=== PATIENT | male | born 1960 ===

== ENCOUNTER 2016-10-14 10:40 | Emergency (ER) | payer BC ==
[2016-10-14 10:43] VITALS: BMI 31.1
[2016-10-14 11:09] LABS: BASO # 0.1 K/uL (0.0-0.2); BASO % 0.7 % (0.0-2.0); EOS # 0.1 K/uL (0.0-0.7); EOS % 0.7 % (0.0-4.0); HEMATOCRIT 33.1 % (35.0-51.0); LYMPH # 1.4 K/uL (1.0-4.3); LYMPH % 9.7 % (20.0-40.0); MEAN CELL VOLUME 83.9 fL (80.0-94.0); MEAN CORPUSCULAR HGB CONC 32.2 g/dL (33.0-37.0); MEAN PLATELET VOLUME 8.9 fL (7.2-11.7); MONO # 1.2 K/uL (0.0-0.8); PLATELET COUNT 183 K/uL (130-400); RED CELL DISTRIBUTION WIDTH 13.7 % (11.5-14.5); WHITE BLOOD COUNT 14.6 K/uL (4.8-10.8)
--- NOTE | 2016-10-14 11:13 | C.PDOC ---
History Of Present Illness 56 y/o male history of aortic valve replacement 3 weeks ago (Gen) presents to the ED with complains of pain around incision site at right chest which developed last night. Pain worsened this morning and is worse with breathing. Pt also reports cramping and numbness sensation to right arm and leg since last night. Denies fever, chills, SOB, or any other complaints. Time Seen by Provider: 10/14/16 11:10 Chief Complaint (Nursing): Chest Pain History Per: Patient History/Exam Limitations: no limitations Onset/Duration Of Symptoms: Hrs Current Symptoms Are (Timing): Still Present Severity: Moderate Quality: "Pain" Exacerbating Factors: Other (breathing) Alleviating Factors: None Recent travel outside of the [place]: No Past Medical History Reviewed: Historical Data, Nursing Documentation, Vital Signs Vital Signs: Last Vital Signs Temp 98.6 F 10/14/16 19:42 Pulse 48 L 10/14/16 19:42 Resp 10 L 10/14/16 19:42 BP 100/43 L 10/14/16 19:42 Pulse Ox 100 10/14/16 19:42 - Medical History PMH: HTN, Hypercholesterolemia Surgical History: Endoscopy Family History: States: Unknown Family Hx - Social History Hx Alcohol Use: Yes Hx Substance Use: No - Immunization History Hx Tetanus Toxoid Vaccination: Yes Hx Influenza Vaccination: Yes Hx Pneumococcal Vaccination: Yes Review Of Systems Except As Marked, All Systems Reviewed And Found Negative. Constitutional: Negative for: Fever, Chills Respiratory: Negative for: Shortness of Breath Musculoskeletal: Positive for: Other (pain to insicion site at right chest; cramping and numbness to right arm and leg) Neurological: Positive for: Numbness Physical Exam - Physical Exam Appears: Non-toxic, No Acute Distress Skin: Warm, Dry, No Rash Head: Atraumatic, Normacephalic Neck: Normal, Normal ROM, Supple Chest: Symmetrical, Other (healing incision over right chest, no erythema or drainage; creppitus over right anterior lateral chest wall) Cardiovascular: Rhythm Regular, No Murmur Respiratory: Normal Breath Sounds, No Rales, No Rhonchi, No Wheezing Gastrointestinal/Abdominal: Normal Exam, Soft, No Tenderness Extremity: Normal ROM Extremity: Bilateral: Atraumatic Pulses: Left Radial: Normal, Right Radial: Normal, Left Femoral: Normal, Right Femoral: Normal, Left Dorsalis Pedis: Normal, Right Dorsalis Pedis: Normal Neurological/Psych: Oriented x3, Normal Speech, Normal Motor, Normal Sensation ED Course And Treatment - Laboratory Results Result Diagrams: 10/14/16 11:05 10/14/16 11:05 ECG: Interpreted By Me, Viewed By Me ECG Rhythm: Atrial Fibrillation Interpretation Of ECG: Bifasicular block Rate From EC (BPM) O2 Sat by Pulse Oximetry: 98 (room air) Pulse Ox Interpretation: Normal Critical Care Time - Critical Care Note Total Time (in mins): 60 Documented critical care: time excludes all time spent performing seperately billable procedures. Medical Decision Making Medical Decision Makin Discussed case with Dr Hager who reviewed EKG, not indicated for code heart at this time. Disc w Dr Walton at [facility] who disc w Dr Nuno who performed the surgery- they rec no anticoagulation, rec placing a emili filter Disc w Dr Ortiz who will admit- req surgical and ICU consult Disc w Dr Whaley who will see the pt in consult Disc w ICU Dr Yu who rec disc w IR and will come eval the pt. Disc w Dr Deleon w IR who does not rec cath directed thromb at this time Dr Yu does not accept to ICU due to lack of cardiothoracic surgery, please see her note for details. I spoke with Dr Nuno at [facility] who did not accept the patient. I spoke jos Torres the CT surgery PA at [facility] and he did accept the pt for transfer to the CCU. 1999 I updated the pt on status. He is resting quietly no complaints at this time. HDS. Disposition - Disposition Disposition: Trans to Other Acute Care Hosp Disposition Time: 20:00 Condition: STABLE - Clinical Impression Clinical Impression: Chest pain, Pulmonary emboli, Pleural effusion, Postoperative wound hematoma, Post-operative hemorrhage - Scribe Statement The provider has reviewed the documentation as recorded by the Sharon Mack Provider Attestation: All medical record entries made by the Sharon were at my direction and personally dictated by me. I have reviewed the chart and agree that the record accurately reflects my personal performance of the history, physical exam, medical decision making, and the department course for this patient. I have also personally directed, reviewed, and agree with the discharge instructions and disposition.
[2016-10-14] MEDS ORDERED: Morphine 4 MG/ML VIAL ONE (11:16)
[2016-10-14 11:18] LABS: INR 1.1
[2016-10-14 11:47] LABS: CHLORIDE 96 mmol/L (98-107)
[2016-10-14 11:48] LABS: POTASSIUM 4.2 mmol/L (3.6-5.2); SODIUM 133 mmol/L (132-148)
[2016-10-14 11:51] LABS: ALKALINE PHOSPHATASE 73 U/L (38-126); ALT/SGPT 43 U/L (21-72); AST/SGOT 39 U/L (17-59); BILIRUBIN,TOTAL 0.9 mg/dL (0.2-1.3); BLOOD UREA NITROGEN 15 mg/dL (9-20); CALCIUM 8.6 mg/dl (8.6-10.4); CARBON DIOXIDE 25 mmol/L (22-30); GFR AFRICAN-AMERICAN > 60; GLUCOSE,RANDOM 264 mg/dL (75-110); TOTAL PROTEIN 7.2 g/dL (6.3-8.3)
[2016-10-14 11:54] LABS: NEUTROPHIL 87 % (50-75); TOTAL CELLS COUNTED 100
[2016-10-14] MEDS ORDERED: Iodixanol 320 MG/ML 100 ML BOTTLE IV ONE (13:12)
--- NOTE | 2016-10-14 13:51 | RAD ---
HISTORY: chest pain COMPARISON: None available TECHNIQUE: Chest, one view. FINDINGS: Examination limited by habitus. LUNGS: Patchy opacities abutting the right heart border may reflect atelectasis or infiltrate. Please note that chest x-ray has limited sensitivity for the detection of pulmonary masses. PLEURA: No significant pleural effusion identified. No definite pneumothorax . CARDIOVASCULAR: Marked cardiomegaly. OSSEOUS STRUCTURES: Degenerative changes of the spine. VISUALIZED UPPER ABDOMEN: Unremarkable. OTHER FINDINGS: None. IMPRESSION: Patchy opacities abutting the right heart border may reflect atelectasis or infiltrate. Marked cardiomegaly. Degenerative changes of the spine.
--- NOTE | 2016-10-14 14:35 | CT ---
CT dissection study Indication: chest pain s/p AVR r side numbness Technique: Contiguous axial images were obtained without and with IV contrast utilizing dissection protocol. Coronal and Sagittal reformats generated and reviewed. This CT exam was performed using 1 or more of the following dose reduction techniques: Automated exposure control, adjustment of the MAA and/or kV according to patient size, and/or use of iterative reconstruction technique. Oral contrast was not administered. 100 mL Visipaque injected. Radiation dose: Total exam DLP = 20/40 6.94 MGy-cm. Comparison: CT of the abdomen and pelvis performed 02/07/15 Findings: Visualized portions of the inferior thyroid gland appear unremarkable. The mediastinal and hilar vascular structures appear within normal limits. Cardiomegaly. Aortic valve replacement. Dense coronary artery calcification. Small anterior mediastinal amorphous hypodense region likely related to recent postsurgical status, likely blood products/hematoma. Small associated foci of air. Thin radiopaque tubing projects in the right chest to the level of the heart border. Small to moderate right and trace left pleural effusions. Bibasilar compressive consolidations. No pneumothorax. Pulmonary emboli are noted within the right upper lobe (series 604, image 81) and lower lobe pulmonary artery branches (for example series 6, image 63). Asymmetric enlargement of the right pectoralis muscle ; correlate clinically for edema underlying hematoma cannot be excluded. Extensive subcutaneous emphysema throughout the right chest wall. Several sub cm probable splenules. 14 mm right and 15 mm left renal low-density lesions, indeterminate. No hydronephrosis or obstructing calculus evident. Bilateral adrenal gland hypertrophy. The liver, spleen, pancreas, and gallbladder appear otherwise unremarkable. Nonspecific sub cm mesenteric and retroperitoneal lymph nodes. Mesenteric inflammatory stranding. The stomach is incompletely distended. The bowel loops appear within normal limits of caliber without evidence of intestinal obstruction. Partially imaged thick-walled loop of small bowel in the right lower quadrant ; correlate clinically for possibility of enteritis. Surgical clips in the right lower quadrant compatible with appendectomy. There is no definite free air. Bilateral gynecomastia. Degenerative changes of the spine. Impression: Small anterior mediastinal amorphous hypodense region likely related to recent postsurgical status, likely hematoma. Small associated foci of air. Pulmonary emboli are noted within the right upper lobe and lower lobe pulmonary artery branches . Asymmetric enlargement of the right pectoralis muscle ; correlate clinically for edema underlying hematoma cannot be excluded. Extensive subcutaneous emphysema throughout the right chest wall. Small to moderate right and trace left pleural effusions. Bibasilar compressive consolidations. Thin radiopaque tubing projects in the right chest to the level of the heart border. 14 mm right and 15 mm left renal low-density lesions, indeterminate. Nonspecific sub cm mesenteric and retroperitoneal lymph nodes. Mesenteric inflammatory stranding. Correlate clinically for possibility of mesenteric adenitis. Partially imaged thick-walled loop of small bowel in the right lower quadrant ; correlate clinically for possibility of enteritis. Additional findings as above. Findings discussed with Dr. Hernandez on 10/14/16 at 12:17 p.m.
--- NOTE | 2016-10-14 17:42 | CP.PCM.CON ---
History of Present Illness - History of Present Illness History of Present Illness: Surgery: Dr. Whaley CC: Chest Pain HPI: Patient is a 56 y/o male w/ sign. pmhx of recent cardiac valve replacement presents to ED complaining of acute onset of chest pain on the right side of the chest that started today. He denies SOB or diaphoresis. Patient underwent cardiac valve replacement believed to be at the beginning of October at [facility]. Patient denies any swelling of the legs or pain in the legs. He states he has been ambulating at home frequently. Currently, patient states the pain has resolved. PMH: cardiac valve disease, HTN, HLD PSH: endoscopy, valve replacement surgery October 2016 Social: social ETOH use, denies tobacco use Review of Systems - Review of Systems All systems: reviewed and no additional remarkable complaints except Review of Systems: denies other symptoms Past Patient History - Past Social History Smoking Status: Light Smoker < 10 Cigarettes Daily - CARDIAC Hx Hypercholesterolemia: Yes Hx Hypertension: Yes - NEUROLOGICAL Hx Neurological Disorder: Yes HX Cerebrovascular Accident: Yes - ENDOCRINE/METABOLIC Hx Endocrine Disorders: Yes Hx Diabetes Mellitus Type 2: Yes - PSYCHIATRIC Hx Substance Use: No - SURGICAL HISTORY Hx Surgeries: Yes Hx Cardiac Catheterization: Yes Hx Valve Replacement: Yes (3 weeks aortivc valve replacement) Meds Allergies/Adverse Reactions: Allergies Allergy/AdvReac Type Severity Reaction Status Date / Time No Known Allergies Allergy Verified 10/14/16 10:42 Physical Exam - Constitutional Appears: Non-toxic, No Acute Distress - Head Exam Head Exam: ATRAUMATIC, NORMOCEPHALIC - Eye Exam Eye Exam: EOMI, Normal appearance - ENT Exam ENT Exam: Mucous Membranes Moist - Respiratory Exam Respiratory Exam: NORMAL BREATHING PATTERN. absent: Respiratory Distress Additional comments: incision CDI w/ dermabond closure - Cardiovascular Exam Cardiovascular Exam: Bradycardia, REGULAR RHYTHM - GI/Abdominal Exam GI & Abdominal Exam: Soft. absent: Distended, Tenderness - Extremities Exam Extremities exam: Positive for: normal inspection, pedal pulses present. Negative for: calf tenderness, pedal edema - Neurological Exam Neurological exam: Alert, Oriented x3 - Psychiatric Exam Psychiatric exam: Normal Affect, Normal Mood - Skin Skin Exam: Dry, Intact, Normal Color, Warm Results - Vital Signs Recent Vital Signs: Last Vital Signs Temp 98.1 F 10/14/16 10:43 Pulse 41 L 10/14/16 15:55 Resp 12 05/11/17 15:55 BP 115/48 L 10/14/16 15:55 Pulse Ox 98 10/14/16 17:21 - Labs Result Diagrams: 10/14/16 11:05 10/14/16 11:05 Assessment & Plan - Assessment and Plan (Free Text) Assessment: 56 y/o male w/ PE s/p cardiac valve replacement Plan: -would recommend anticoagulation -CT shows small hematoma at surgical site but benefits of anticoagulation outweigh risks -duplex ultrasound to determine whether there is residual DVT in LEs -hold off on IVC filter for now -cardiac evaluation -no acute surgical intervention at this time -patient seen and examined with Dr. Judd Torres PGY1
--- NOTE | 2016-10-14 18:33 | CP.PCM.CON ---
History of Present Illness - History of Present Illness History of Present Illness: Critical Care Consultation Note Dr. Yu CC: Right arm Pain and decreased ROM x 1 day HPI: This is a 56 year old male with a PMH notable for DM2, hypercholesterolemia , HTN, and CVA x2 (2012 and 2014) presenting for critical care evaluation of right arm pain and decreaesd ROM x 1 day. The patient is s/p aortic valve replacement with Salazar Intuity Elite Aortic Valve on 10/07/[address] Erasmo Nuno at [facility]. The patient has pain with active flexion and adduction of his right arm. There is pain around his right pectoral incision and subcutaneous crepitance and firmness likely representing a hematoma. CT chest preformed in the ED reveals right sided PE with right pectoral and anterior mediastinal hematoma. The patient presently denies all cardiopulmonary complaints. The patient also denies fever, chills, headache, chest pain, palpitations, SOB, cough, abdominal pain, N/V/D/C, changes in bowel/ bladder. The patient is Tristanian speaking. History was obtained using video-pay agent service. The interpretor was Cesia #[id number]. PMH: DM2, hypercholesterolemia, HTN, and CVA x2 (2012 and 2014) Allergy: NKDA Surg: SAVR (Salazar Intuity Elite Aortic Valve on 10/07/[address] Erasmo Nuno) Social: 1/2 pack cigarettes per week, weekly alcohol use, denies illicit drugs, lives in home with family Review of Systems - Constitutional Constitutional: absent: Chills, Fever - EENT Eyes: absent: Blurred Vision, Change in Vision Ears: absent: Tinnitus Nose/Mouth/Throat: absent: Nose Pain, Facial Pain, Neck Pain - Cardiovascular Cardiovascular: absent: Chest Pain, Lightheadedness, Orthopnea, Palpitations, Syncope - Respiratory Respiratory: Dyspnea on Exertion. absent: Cough, Dyspnea - Gastrointestinal Gastrointestinal: absent: Abdominal Pain, Constipation, Diarrhea, Nausea, Vomiting - Genitourinary Genitourinary: absent: Change in Urinary Stream, Difficulty Urinating - Musculoskeletal Musculoskeletal: Limited Range of Motion (Right arm), Myalgias (right arm). absent: Neck Pain, Numbness, Stiffness - Integumentary Integumentary: absent: Lesions, Rash, Wounds - Neurological Neurological: Dizziness (intermittent ). absent: Frequent Falls, Loss of Vision , Memory Loss, Syncope, Tingling, Tremor, Vertigo, Weakness - Endocrine Endocrine: absent: Cold Intolorance, Heat Intolorance, Polydipsia, Polyphagia Past Patient History - Past Social History Smoking Status: Light Smoker < 10 Cigarettes Daily - CARDIAC Hx Hypercholesterolemia: Yes Hx Hypertension: Yes - NEUROLOGICAL Hx Neurological Disorder: Yes HX Cerebrovascular Accident: Yes - ENDOCRINE/METABOLIC Hx Endocrine Disorders: Yes Hx Diabetes Mellitus Type 2: Yes - PSYCHIATRIC Hx Substance Use: No - SURGICAL HISTORY Hx Surgeries: Yes Hx Cardiac Catheterization: Yes Hx Valve Replacement: Yes (3 weeks aortivc valve replacement) Meds Allergies/Adverse Reactions: Allergies Allergy/AdvReac Type Severity Reaction Status Date / Time No Known Allergies Allergy Verified 10/14/16 10:42 Physical Exam - Constitutional Appears: Older Than Stated Age, Chronically Ill - Head Exam Head Exam: ATRAUMATIC, NORMAL INSPECTION, NORMOCEPHALIC - Eye Exam Eye Exam: EOMI, Normal appearance - ENT Exam ENT Exam: Mucous Membranes Moist - Neck Exam Neck exam: Positive for: Full Rom. Negative for: Lymphadenopathy, Tenderness - Respiratory Exam Respiratory Exam: Clear to Auscultation Bilateral, NORMAL BREATHING PATTERN. absent: Decreased Breath Sounds, Rales, Rhonchi, Wheezes, Respiratory Distress - Cardiovascular Exam Cardiovascular Exam: Bradycardia, REGULAR RHYTHM, +S1, +S2, Systolic Murmur ( grade 3/6 mitral listening post radiation to the axilla). absent: RRR - GI/Abdominal Exam GI & Abdominal Exam: Normal Bowel Sounds, Soft. absent: Distended, Firm, Guarding, Tenderness - Extremities Exam Extremities exam: Positive for: normal inspection, pedal pulses present ( diminished 1+ B/L). Negative for: normal capillary refill, pedal edema, tenderness Additional comments: right chest incision healed wound edges well approximated no erythema no edudate no edema - Neurological Exam Neurological exam: Alert, CN II-XII Intact, Oriented x3 - Skin Skin Exam: Dry, Intact, Normal Color, Warm Results - Vital Signs Recent Vital Signs: Last Vital Signs Temp 97.5 F L 10/14/16 17:49 Pulse 42 L 10/14/16 17:49 Resp 16 10/14/16 17:49 BP 117/51 L 10/14/16 17:49 Pulse Ox 100 10/14/16 17:49 - Labs Result Diagrams: 10/14/16 11:05 10/14/16 11:05 Assessment & Plan (1) H/O aortic valve replacement Status: Chronic (2) Hematoma Status: Acute (3) Pulmonary emboli Status: Acute (4) Right upper limb pain Status: Acute - Assessment and Plan (Free Text) Assessment: This is a 56 year old male with a PMH notable for DM2, hypercholesterolemia, HTN , and CVA x2 (2012 and 2014) presenting for critical care evaluation of right arm pain and decreaesd ROM x 1 day. Plan: Neuro: AOx3 no acute issues Cardiovascular: s/p aortic valve replacement 10/07/16 acute hematoma formation surrounding right pectoral incision contra indication for anticoagulation patient with require interventional radiology or cardiothoracic services Pulmonary: CT: dissection protocol- Gastrointestinal: continue renal diet dressing clean dry intact continue wound care wound management and drain management per General Surgery Team Hematology: hemodynamically stable s/p pRBC transfusions Endocrine: No acute issues Renal: No issues Musculoskeletal: right arm pain activity 2/2 to hematoma pain control Genitourinary: No issues Infectious Disease: No issues GI Prophylaxis: None DVT Prophylaxis: None Case discussed with Dr. Yu Given that patient has acute PE (clinically stable) with possible acute or very recent bleed at site of incision and with complications related to AVR procedure he will be better served at [place] where interventional cardiology and cardio-thoracic physicians are available. [facility] does not have such services. Luiz Lowe PGY1 - Date & Time Date: 10/14/16 Time: 18:58
--- NOTE | 2016-10-14 18:40 | CP.PCM.CON ---
History of Present Illness - History of Present Illness History of Present Illness: Patient seen and examined in the ER as request of Dr. Ortiz. This is a 56 year old male with history of HTN, DM and heart disease with recent AVR on 10/07 at [facility] by Dr. Erasmo Magana who comes to the hospital after having right sided chest pain last night (at the site of the surgical insertion) that ran all the way to his left leg. He was never hypotensive or hypoxic. He was given morphine in the ER and since then the pain has gone away and he has been bradycardic, maintaining blood pressure, saturating 100% on 2 L NC. EKG done a few mn ago shows high degree AV block, most likely initial tachyardia was related to pain. Also since last night he started getting dizzy and after taking 2 steps he gets more dizzy. CT scan of the chest was done showing right sided PE. The patient states that since last night the site of the surgical incision has been increasing in size, I am not sure if he is been having some acute bleed or bleed last night, so I would hold on anticoagulation at this time, Dr. Deleon form IR consulted by Dr. Hernandez for catheter directed thrombolysis but it was not advised. Given that patient has acute PE (clinically stable) with possible acute or very recent bleed at site of incision and with complications related to AVR procedure he will be better served at [place] where interventional cardiology and cardio-thoracic physicians are available. [facility] does not have such services. Past Patient History - Past Social History Smoking Status: Light Smoker < 10 Cigarettes Daily - CARDIAC Hx Hypercholesterolemia: Yes Hx Hypertension: Yes - NEUROLOGICAL Hx Neurological Disorder: Yes HX Cerebrovascular Accident: Yes - ENDOCRINE/METABOLIC Hx Endocrine Disorders: Yes Hx Diabetes Mellitus Type 2: Yes - PSYCHIATRIC Hx Substance Use: No - SURGICAL HISTORY Hx Surgeries: Yes Hx Cardiac Catheterization: Yes Hx Valve Replacement: Yes (3 weeks aortivc valve replacement) Meds Allergies/Adverse Reactions: Allergies Allergy/AdvReac Type Severity Reaction Status Date / Time No Known Allergies Allergy Verified 10/14/16 10:42 Results - Vital Signs Recent Vital Signs: Last Vital Signs Temp 97.5 F L 10/14/16 17:49 Pulse 42 L 10/14/16 17:49 Resp 16 10/14/16 17:49 BP 117/51 L 10/14/16 17:49 Pulse Ox 100 10/14/16 17:49 - Labs Result Diagrams: 10/14/16 11:05 10/14/16 11:05
[2016-10-14 20:55] VITALS: BP 131/74; PULSE 47; RESP 16; TEMP 98; O2SAT 100
== END 2016-10-14 21:00 | disposition short-term general hospital (02) ==
LOC: C.ER 10:40 → C.9I 17:21 → UNDOADMIN 17:21 → C.ER 21:00
DX: I26.99 Other pulmonary embolism without acute cor pulmonale (principal); J90 Pleural effusion, not elsewhere classified; I97.638 Postprocedural hematoma of a circulatory system organ or structure following other circulatory system procedure; I97.618 Postprocedural hemorrhage of a circulatory system organ or structure following other circulatory system procedure; Y83.8 Other surgical procedures as the cause of abnormal reaction of the patient, or of later complication, without mention of misadventure at the time of the procedure; R07.9 Chest pain, unspecified
CPT/HCPCS: 71010; 71275; 74175; 80053; 82948; 84484; 85025; 85610; 85730; 86850; 86900; 96374; 99285; J2270; Q9967

== ENCOUNTER 2017-01-01 16:13 | Observation (INO) | payer BC ==
[2017-01-01 16:13] VITALS: BMI 31.1
[2017-01-01 16:43] VITALS: TEMP 98.5
--- NOTE | 2017-01-01 17:38 | C.PDOC ---
History Of Present Illness <Zoila Lucas - Last Filed: 01/01/17 18:52> <Cherelle Marie - Last Filed: 01/02/17 05:32> 56-YEAR-OLD MALE, PRESENTS TO THE EMERGENCY DEPARTMENT WITH COMPLAINTS OF R LOWER BACK PAIN SINCE 12 PM. LOCALIZED WORSE W MOVEMENT RESOLVES W REST. DENIES TRAUMA. PAIN RADIATES R TESTICLE NOW RESOLVED. NO OTHER ASSOC SX. "I DONT KNOW WHAT THEY DID TO FIX MY LUNG CLOT. I DONT KNOW WHAT MEDS I AM TAKING" HX OBTAINED VIA TRANS RN FROILAN PT IS A POOR HISTORIAN EXAM MOD DIST NONTOXIC BACK LIMITED ROM DUE TO PAIN. +TEND R LOWER BACK. NO CVAT. NO LS TEND. REPRODUC PAIN W MOVEMENT. NEURO NO FOCAL DEF ABD NEG MDM OLD RECORDS 10/14 REVIEWED. PT DENIES CP, SOB. CT DISSECTION 10/14 NO NOTED DISSECTION. (Zoila Lucas) History Per: Patient History/Exam Limitations: no limitations <Zoila Lucas - Last Filed: 01/01/17 18:52> <Cherelle Marie - Last Filed: 01/02/17 05:32> Time Seen by Provider: 01/01/17 17:05 Chief Complaint (Nursing): Back Pain Past Medical History Reviewed: Historical Data, Nursing Documentation, Vital Signs - Medical History PMH: HTN, Hypercholesterolemia Surgical History: Endoscopy Family History: States: No Known Family Hx - Social History Hx Alcohol Use: No Hx Substance Use: No - Immunization History Hx Tetanus Toxoid Vaccination: No Hx Influenza Vaccination: No Hx Pneumococcal Vaccination: No <Zoila Lucas - Last Filed: 01/01/17 18:52> Review Of Systems Except As Marked, All Systems Reviewed And Found Negative. Constitutional: Negative for: Fever, Chills Cardiovascular: Negative for: Chest Pain, Palpitations Respiratory: Negative for: Shortness of Breath Gastrointestinal: Negative for: Nausea, Vomiting Genitourinary: Positive for: Other (r testicular pain) Musculoskeletal: Positive for: Back Pain Neurological: Negative for: Weakness, Numbness <Zoila Lucas - Last Filed: 01/01/17 18:52> Physical Exam - Physical Exam Appears: Non-toxic, No Acute Distress Skin: Warm, Dry, No Rash Head: Atraumatic, Normacephalic Eye(s): bilateral: PERRL Neck: Normal ROM Cardiovascular: Rhythm Regular, No Murmur Respiratory: Normal Breath Sounds, No Accessory Muscle Use Gastrointestinal/Abdominal: Soft, No Tenderness Back: Other ( LIMITED ROM DUE TO PAIN. +TEND R LOWER BACK. NO CVAT. NO LS TEND. REPRODUC PAIN W MOVEMENT.) Extremity: Normal ROM Neurological/Psych: Oriented x3, Other (NO FOCAL DEFICIT) <Zoila Lucas - Last Filed: 01/01/17 18:52> ED Course And Treatment - Laboratory Results Result Diagrams: 01/01/17 18:12 01/01/17 18:12 O2 Sat by Pulse Oximetry: 95 <Zoila Lucas - Last Filed: 01/01/17 18:52> - Laboratory Results Result Diagrams: 01/01/17 18:12 01/01/17 18:12 Pulse Ox Interpretation: Normal Reevaluation Time: 05:31 Reassessment Condition: Improved <Cherelle Marie - Last Filed: 01/02/17 05:32> Progress - Data Reviewed Data Reviewed: Lab, Diagnostic imaging, Old records <Zoila Lucas - Last Filed: 01/01/17 18:52> <Cherelle Marie - Last Filed: 01/02/17 05:32> - Re-Evaluation Re-evaluation Note: 01/01/17 19:00 PERSIST PAIN. VSS. SO DR Yvette MARIE FU UA, CT, DISPO (Zoila Lucas) Medical Decision Making <Zoila Lucas - Last Filed: 01/01/17 18:52> <Cherelle Marie - Last Filed: 01/02/17 05:32> Medical Decision Making: OLD RECORDS 10/14 REVIEWED. PT DENIES CP, SOB. CT DISSECTION 10/14 NO NOTED DISSECTION (Zoila Lucas) ED OBSERVATION <Zoila Lucas - Last Filed: 01/01/17 18:52> Discharge: Yes Date of observation admission: 01/01/17 Time of observation admission: 22:29 <Cherelle Marie - Last Filed: 01/02/17 05:32> - Observation admission statement Patient is being placed in observation because:: right flank pain (AmyValyelitza) - Goals of Observation Goals of observation are:: improvement (SapchuckValdi) - Progress Note Progress Note: 01/01/17 22:29 vitals stable 01/02/17 02:54 pt feels better, vitals stable (Cherelle Marie) Disposition <LanceZoila - Last Filed: 01/01/17 18:52> Counseled Patient/Family Regarding: Studies Performed, Diagnosis, Need For Followup - Disposition Disposition Time: 19:00 <Cherelle Marie - Last Filed: 01/02/17 05:32> - Disposition Disposition: HOME/ ROUTINE Condition: FAIR - Clinical Impression Clinical Impression: Low back pain, H/O aortic valve replacement - Scribe Statement The provider has reviewed the documentation as recorded by the Scribe (NITA GRAMAJO) <Zoila Lucas - Last Filed: 01/01/17 18:52> <Cherelle Marie - Last Filed: 01/02/17 05:32> - Scribe Statement All medical record entries made by the Scribe were at my direction and personally dictated by me. I have reviewed the chart and agree that the record accurately reflects my personal performance of the history, physical exam, medical decision making, and the department course for this patient. I have also personally directed, reviewed, and agree with the discharge instructions and disposition. (Zoila Lucas) Physician Patient Turnover Patient Signed Over To: Cherelle Marie Handoff Comments: ALVAREZ CT, COAG, UA, DISPO <Zoila Lucas - Last Filed: 01/01/17 18:52>
[2017-01-01 18:22] LABS: BASO # 0.1 K/uL (0.0-0.2); EOS # 0.2 K/uL (0.0-0.7); EOS % 1.7 % (0.0-4.0); HEMATOCRIT 39.1 % (35.0-51.0); LYMPH # 2.4 K/uL (1.0-4.3); LYMPH % 25.4 % (20.0-40.0); MEAN CELL VOLUME 82.8 fL (80.0-94.0); MEAN CORPUSCULAR HEMOGLOBIN 26.9 pg (27.0-31.0); MEAN CORPUSCULAR HGB CONC 32.5 g/dL (33.0-37.0); MONO # 0.9 K/uL (0.0-0.8); MONO % 9.3 % (0.0-10.0); NRBC % 0.1 % (0.0-2.0); RED CELL DISTRIBUTION WIDTH 14.2 % (11.5-14.5); WHITE BLOOD COUNT 9.6 K/uL (4.8-10.8)
[2017-01-01 18:23] LABS: CHLORIDE 99 mmol/L (98-107); SODIUM 139 mmol/L (132-148)
[2017-01-01 18:24] LABS: POTASSIUM 4.9 mmol/L (3.6-5.2)
[2017-01-01 18:26] LABS: BLOOD UREA NITROGEN 18 mg/dL (9-20); CARBON DIOXIDE 28 mmol/L (22-30); GFR AFRICAN-AMERICAN > 60
[2017-01-01 18:27] LABS: CALCIUM 8.8 mg/dl (8.6-10.4); GLUCOSE,RANDOM 142 mg/dL (75-110)
[2017-01-01] MEDS ORDERED: Morphine 4 MG/ML VIAL ONE ×3 (18:45→22:29)
[2017-01-01 19:22] VITALS: RESP 20
[2017-01-01 19:22] LABS: INR 0.9
[2017-01-01] MEDS ORDERED: Enoxaparin 40 mg Syringe SC STA (19:37)
[2017-01-01] MEDS ORDERED: Sodium Chloride 0.9% 1,000 ML IV ONE ×2 (19:55→22:20)
[2017-01-01 21:32] LABS: URINE BILIRUBIN NEGATIVE (NEGATIVE); URINE BLOOD 1+ (NEGATIVE); URINE COLOR Yellow (YELLOW); URINE GLUCOSE (UA) NORMAL (Normal); URINE KETONE NEGATIVE (NEGATIVE); URINE LEUKOCYTE ESTERASE NEG Leu/uL (Negative); URINE PROTEIN NEGATIVE (NEGATIVE); URINE UROBILINOGEN NORMAL mg/dL (0.2-1.0); WBC URINE < 1 /hpf (0-5)
[2017-01-01] MEDS ORDERED: Sodium Chloride 0.9% 1,000 ML ONE (22:28)
[2017-01-01] MEDS ORDERED: HYDROmorphone 1 mg/ml ISec IVP STA (23:10)
[2017-01-01 23:19] VITALS: O2SAT 97
[2017-01-02 05:51] VITALS: BP 137/71; PULSE 80
--- NOTE | 2017-01-02 09:05 | CT ---
PROCEDURE: CT Abdomen and Pelvis without intravenous contrast HISTORY: R BACK PAIN COMPARISON: 02/07/2015 TECHNIQUE: CT scan of the abdomen and pelvis was performed without administration of intravenous contrast. Oral contrast was not administered. Coronal and sagittal reformatted images were obtained. Radiation dose: Total exam DLP = 945.25 mGy-cm. This CT exam was performed using one or more of the following dose reduction techniques: Automated exposure control, adjustment of the mA and/or kV according to patient size, and/or use of iterative reconstruction technique. FINDINGS: LOWER THORAX: The lung bases are clear. LIVER: The liver is normal in size. No gross lesion or ductal dilatation. GALLBLADDER AND BILE DUCTS: There are no calcified gallstones. PANCREAS: The pancreas is normal in size. No gross lesion or ductal dilatation. SPLEEN: The spleen is normal in size. ADRENALS: Both adrenal glands are normal in size without discrete nodule. KIDNEYS AND URETERS: Both kidneys are normal in size without hydronephrosis or nephrolithiasis. There is a 1.9 cm simple cyst in the upper pole of the right kidney and a small simple cyst in the left lower pole. There is nonspecific perinephric fat stranding. VASCULATURE: There are early atherosclerotic aortoiliac calcifications. No aortic aneurysm. BOWEL: The bowel loops are normal in caliber. No obstruction. No gross mural thickening. APPENDIX: Surgically absent. PERITONEUM: No free fluid. No free air. LYMPH NODES: There is moderate stranding of the upper abdominal mesenteric fat. No enlarged lymph nodes. BLADDER: Well distended and normal in appearance. REPRODUCTIVE: Normal in size. BONES: No acute fracture. Diffuse bone demineralization and multilevel degenerative disc disease. OTHER FINDINGS: None IMPRESSION: 1. 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 2. No acute abdominal or pelvic abnormality. A preliminary report was provided by [facility].
--- NOTE | 2017-01-05 21:47 | CARD ---
APPROVED REPORT EKG Measurement Heart [id number] IN [id number] [id number] <Conclusion> a sensed v paced with occasional fusion beats.
== END 2017-01-02 05:32 | disposition home or self-care (01) ==
LOC: C.ER 16:13 → C.9OBSV 22:28
PROVIDERS: ADMIT Emergency Medicine; ATTEND Emergency Medicine
DX: M54.5 Low back pain (principal); E78.00 Pure hypercholesterolemia, unspecified; I10 Essential (primary) hypertension
CPT/HCPCS: 74176; 80048; 81001; 82948; 85025; 85378; 85610; 85730; 96361; 96372; 96374; 96375; 99285; G0378; J1170; J1650; J1885; J2270; J2405; J7040